=== PATIENT | female | born 1990 | race Caucasian/White ===

== ENCOUNTER 2023-09-12 11:00 | Outpatient (OUT) | payer OTHER, SELFPAY ==
--- NOTE | 2023-09-12 | XR_ITS ---
[facility] [id number] Patient Name: DION MCKAY MRN: [id number] date: 1990 Sex: F Assigned Patient Location: Current Patient Location: Accession/Order Number: [id number] Exam Date: 09/12/2023 11:11 Report Date: 09/14/2023 08:00 At the request of: NILS FOSTER Procedure: XR foot RT min 3V PROCEDURE: XR foot RT min 3V DATE: 09/12/2023 11:11 AM EST COMPARISONS: 06/30/2021 CLINICAL INDICATION: RIGHT FOOT PAIN FINDINGS: There is no evidence of fractures or other acute osseous abnormalities. There is first metatarsal phalangeal fusion. The fusion hardware appears to be intact based on these images. Fusion hardware is stable in appearance from previous exam. There is mild to moderate first interphalangeal degenerative change, stable. There is minimal midfoot degenerative changes, stable. XR/XR foot RT min 3V IMPRESSION: Right foot radiographs show no evidence of acute abnormalities. Stable fusion right first metatarsal phalangeal joint. The patient reports small bowel lateral aspect of the foot. No clear evidence of soft tissue abnormality lateral aspect of the foot. No radiopaque foreign bodies lateral aspect of the right foot. Electronically authenticated by: VINCENT MATTHEWS Date: 09/14/2023 08:00
== END 2023-09-12 11:01 | disposition home or self-care (01) ==
LOC: EC 11:01
PROVIDERS: Visit Provider Podiatrist Foot & Ankle Surgery
DX: M79.671 Pain in right foot (principal)
CPT/HCPCS: 73630